=== PATIENT | male | born 1950 | race Caucasian/White ===

== ENCOUNTER 2025-03-10 13:00 | Outpatient (RCR) | payer MEDICARE, BC, SELFPAY ==
--- NOTE | 2025-03-03 15:34 | PT.OPEX ---
PT [place] Outpatient Eval PT [facility] Outpatient Eval Start: 03/03/25 12:44 Freq: Status: Active Protocol: Document 03/03/25 12:46 HLA (Rec: 03/03/25 15:31 HLA [id number]) E-signed By Julia Martínez, PT, DPT Physical Therapy Outpatient Evaluation Insurance Information Insurance Name [employer] Medical Diagnosis R hip bursitis greater trochanter, R hip abductor tendinitis, hx of R post PATSY Treating Diagnosis pain, weakness R hip secondary to bursitis Referring MD Farley Subjective Preferred Name Tenzin Subjective Pain R hip comes and goes, sometimes occurs with standing , walking, resting. Describes pain as sharp, achiness. 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 Takes Aleve and finds it helps the first 30 min then often it doesn't work. He has not tried ice or heat. He feels he has not had any relief from the cortisone injection at this time. Pain Comments pain moderate R hip but intermittent Date of Last Physician Visit 02/26/25 Current Work Status Retired Precautions Weight Bearing Status Full Weight Bearing Therapy Limitations/Systems Review Not Limited Objective Range of Motion R hip 0-100 flex, 0-30 abd, ER /IR 0-30 L hip 0-105 flex, 0-40 abd, ER/IR 0-40 Knees 0-110 flex B Strength R hip hip flex 4/5, abd 4-/5, add 5-/5, ext 4-/5 L hip 5-/5 knees 5/5 Swelling no edema present, PATSY incisions well healed Palpation tenderness R greater trochanter, piriformis, glut medius. Balance & Gait Gait stable, mild hip flex, self report of pain R hip with standing and long distance gt Stairs ind Balance-standing good static, good- dynamic Sensation/Reflexes intact to light touch Other/Pertinent Objective SLR 0-45 Assessment Assessment/Impression 74 year old male with h of R post PATSY 202 at [facility], hyperlipidemia, basal cell carcinoma, anisocoria, SCC, prostate cancer, HTN, L and R PATSY, and vitrectomy was referred to PT by Dr. Farley due to R hip pain with dx of greater trochanteric bursitis and R hip abductor insertional tendinitis. He did receive a cortisone injection R hip on . 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 Pain occurs intermittently R hip and glut, increases with standing and walking but also can occur seated. Pt presents with limited R hip flex 0-100, abd R hip 0-100 flex, 0-30 abd, ER/IR 0-30, L hip 0-105 flex, 0-40 abd, ER/IR 0-40 Knees 0-110 flex B. Strength testing R hip hip flex 4/5, abd 4-/5, add 5-/5, ext 4-/5, L hip 5-/5, knees 5/5. Pain on palpation R piriformis, greater trochanter. Pt is amb with stable gt, some mild hip flex, does not appear antalgic but self-report of R hip pain that is intermittent. STM to R gluts, piriformis, hip to reduce muscle tension and trigger points. Pt was instructed in stretches for R hip and strengthening of gluts and hip abductors. We discussed activity level, repetitive movements. He could trial heating pad 20-30 min 2 -3x/day as he indicates he does not like ice. He will return next week for PT, does plan a trip to [facility] in 8 days so he is scheduling 1 appt at this time and will consider future appts next week. 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 Primary Functional Limitations impaired ROM, impaired strength R hip, impaired mobility Plan of Care Rehabilitation Potential Good Rehabilitation Potential Comments Access Code: [email or web address] URL: [email or web address] Date: 03/03/2025 Prepared by: Julia Martínez Exercises - Supine Bridge - 2 x daily - 7 x weekly - 1 sets - 10 reps - Supine Lower Trunk Rotation - 1 x daily - 7 x weekly - 1 sets - 10 reps - Clamshell - 2 x daily - 7 x weekly - 1 sets - 10 reps Physical Therapy Goals Within 5-6 weeks 1. Pt will have 5/5 strength of LEs, pain free for ADLS, ambulation level surfaces and stairs. 2. Pt will be able to amb 20 min pain free for mobility in the community. 3. Pt will be independent in home ex program for strengthening, ROM and mobility to reduce fall risk 4. Pt will demonstrate 9 point increase in LEF scale ( functional gain). Coordination/Communication With Referral Source Treatment Plan/Direct Interventions Canalith Repositioning,Dry Needling,Electrical Stimulation,Gait Training,Heat ,Ice/Cold/Vasopneumatic, Iontophoresis,Joint Mobilization,Manual Therapy, Neuromuscular Re-ed,Orthotics/ Braces,Self-Care/Home Management,Therapeutic Activities,Therapeutic Exercises Patient Will Be Discharged From Therapy Completion of LTG(s),Skills Plateau,Independent w/HEP, Independently Progressing Evaluation Billing Untimed Code Treatment Minutes 15 PT Eval No Charge No Complexity Low Certification Information Initial Certification Date 03/03/25 Ending Certification Date 05/31/25 Provider Signature Required Yes Provider Signature Shows Agreement With POC & Medical Necessity Physician NPI Number Write NPI# Here Physician Comment/Change : Physician Signature & Date Requested Please Sign/Date Here
== END 2025-04-08 15:56 | disposition home or self-care (01) ==
PROVIDERS: Visit Provider Orthopaedic Surgery Sports Medicine
DX: M70.61 Trochanteric bursitis, right hip (principal); M76.891 Other specified enthesopathies of right lower limb, excluding foot; Z51.89 Encounter for other specified aftercare
CPT/HCPCS: 97110; 97140; 97161